=== PATIENT | male | born 1995 | race Caucasian/White ===

== ENCOUNTER 2017-12-23 12:56 | Emergency (ER) | payer OTHER, MEDICAID, SELFPAY ==
[2017-12-23 13:12] VITALS: BP 135/69; PULSE 70; RESP 20; TEMP 36.7; O2SAT 99; BMI 23.7
--- NOTE | 2017-12-23 13:20 | ED.EAR ---
HPI - Ear Problem General Chief complaint: Ear Stated complaint: loss of hearing in left ear Time Seen by Provider: 12/23/17 13:04 Source: patient Mode of arrival: ambulatory Limitations: no limitations History of Present Illness HPI Narrative: this is a 22-year-old male who comes in with left ear pain. Patient states he noticed yesterday after shower. He tried to massage the area and also use hydrogen peroxide drops to the left ear without any improvement. He did try to sleep in the left ear last night hoping that it would drain. He states it feels full. It was little bit more irritated and painful yesterday and is less so today. He feels like his hearing is a little bit decreased on that side. He denies any fevers. Denies any other symptoms. No other facial swelling or pain. MD Complaint: ear pain and decreased hearing Location: left ear Duration: constant Severity: moderate Relieving factors: nothing Discharge from ear: no Related Data Previous Rx's Medication Instructions Recorded ciprofloxacin-dexamethasone 4 drop EAR-LEFT QID 5 Days #7.5 ml 12/23/17 NS Allergies Allergy/AdvReac Type Severity Reaction Status Date / Time acetaminophen [From Vicodin] Allergy Verified 12/23/17 13:52 hydrocodone [From Vicodin] Allergy Verified 12/23/17 13:52 Review of Systems Review of Systems All systems reviewed & are unremarkable except as noted in HPI and below Constitutional Denies body ache(s) and Denies fever(s) ENT Ears, Nose, Mouth, and Throat: Reports as per HPI, Reports abnormal hearing ( on left side), Denies change in voice, Denies ear discharge, Reports otalgia, Denies facial pain, Reports hearing loss, Denies nasal congestion, Denies neck pain and Denies sore throat Musculoskeletal Denies neck pain Neurologic Reports abnormal hearing ( on left side) [facility] Surgical History History of surgical removal of meniscus of knee (Acute) Social History Smoking Status: Current every day smoker Exam Initial Vital Signs Initial Vital Signs: Vital Signs Temperature 98.0 F 12/23/17 13:12 Pulse Rate 70 12/23/17 13:12 Respiratory Rate 20 12/23/17 13:12 Blood Pressure 135/69 12/23/17 13:12 Pulse Oximetry 99 12/23/17 13:12 HENDE Head: normal to inspection, normocephalic and atraumatic Ears: external ears normal, TM normal on the right and unable to visualize TM on the left ( the patient has cerumen that appears impacted. There is some slight erythema of the internal auditory canal adjacent to the cerumen.) Nose: external nose normal and No nasal discharge Face and sinus: sinuses nontender, face symmetric, no sinus tenderness and No dry mucous membranes Mouth: oral mucosae normal and moist mucous membranes Teeth and gingiva: dentition normal Throat: tonsils normal and uvula midline Eyes General: appearance normal, both eyes and all related structures Skin General: no rashes or lesions noted Lesions: no lesions Rashes: no rashes Trauma: no lacerations or abrasions Neuro General: alert, oriented x3, gait normal, no focal motor deficits and CN's II-XI intact bilaterally Speech: speech normal Course Orders Ordered: Discontinued Medications Carbamide Peroxide (Debrox) 4 drops EAR-LEFT BID ONE Stop: 12/23/17 13:20 Last Admin: 12/23/17 13:53 Dose: 4 drops Vital Signs - 8 hr 12/23/17 13:12 Temperature 98.0 F Pulse Rate 70 Respiratory Rate 20 Blood Pressure 135/69 Pulse Oximetry 99 Medical Decision Making MDM Narrative Medical decision making narrative: Recheck after irrigation of the left ear. Discharge Plan Departure Patient Disposition: Home Clinical Impression: Impacted cerumen of left ear Instructions: DI for Cerumen Impaction Activity Restrictions/Additional Instructions: Use antibiotic ear drops 4 times daily x5 days. Allow the DeBrox drops to sit for 10 min twice daily. Afterwards flush with warm water with bulb suction syringe. to not use Q-tips or other foreign objects in the ear. Return to the emergency department if any worsening symptoms. Prescriptions: New ciprofloxacin-dexamethasone 0.3-0.1 % drops,suspension 4 drop EAR-LEFT QID 5 Days Qty: 7.5 RF: 0
--- NOTE | 2017-12-23 13:27 | ED_ITS ---
HPI - Ear Problem General Chief complaint: Ear Stated complaint: loss of hearing in left ear Time Seen by Provider: 12/23/17 13:04 Source: patient Mode of arrival: ambulatory Limitations: no limitations History of Present Illness HPI Narrative: this is a 22-year-old male who comes in with left ear pain. Patient states he noticed yesterday after shower. He tried to massage the area and also use hydrogen peroxide drops to the left ear without any improvement. He did try to sleep in the left ear last night hoping that it would drain. He states it feels full. It was little bit more irritated and painful yesterday and is less so today. He feels like his hearing is a little bit decreased on that side. He denies any fevers. Denies any other symptoms. No other facial swelling or pain. MD Complaint: ear pain and decreased hearing Location: left ear Duration: constant Severity: moderate Relieving factors: nothing Discharge from ear: no Related Data Previous Rx's Medication Instructions Recorded ciprofloxacin-dexamethasone 4 drop EAR-LEFT QID 5 Days #7.5 ml 12/23/17 NS Allergies Allergy/AdvReac Type Severity Reaction Status Date / Time acetaminophen [From Vicodin] Allergy Verified 12/23/17 13:52 hydrocodone [From Vicodin] Allergy Verified 12/23/17 13:52 Review of Systems Review of Systems All systems reviewed & are unremarkable except as noted in HPI and below Constitutional Denies body ache(s) and Denies fever(s) ENT Ears, Nose, Mouth, and Throat: Reports as per HPI, Reports abnormal hearing ( on left side), Denies change in voice, Denies ear discharge, Reports otalgia, Denies facial pain, Reports hearing loss, Denies nasal congestion, Denies neck pain and Denies sore throat Musculoskeletal Denies neck pain Neurologic Reports abnormal hearing ( on left side) [facility] Surgical History History of surgical removal of meniscus of knee (Acute) Social History Smoking Status: Current every day smoker Exam Initial Vital Signs Initial Vital Signs: Vital Signs Temperature 98.0 F 12/23/17 13:12 Pulse Rate 70 12/23/17 13:12 Respiratory Rate 20 12/23/17 13:12 Blood Pressure 135/69 12/23/17 13:12 Pulse Oximetry 99 12/23/17 13:12 HENVT Head: normal to inspection, normocephalic and atraumatic Ears: external ears normal, TM normal on the right and unable to visualize TM on the left ( the patient has cerumen that appears impacted. There is some slight erythema of the internal auditory canal adjacent to the cerumen.) Nose: external nose normal and No nasal discharge Face and sinus: sinuses nontender, face symmetric, no sinus tenderness and No dry mucous membranes Mouth: oral mucosae normal and moist mucous membranes Teeth and gingiva: dentition normal Throat: tonsils normal and uvula midline Eyes General: appearance normal, both eyes and all related structures Skin General: no rashes or lesions noted Lesions: no lesions Rashes: no rashes Trauma: no lacerations or abrasions Neuro General: alert, oriented x3, gait normal, no focal motor deficits and CN's II- XI intact bilaterally Speech: speech normal Course Orders Ordered: Discontinued Medications Carbamide Peroxide (Debrox) 4 drops EAR-LEFT BID ONE Stop: 12/23/17 13:20 Last Admin: 12/23/17 13:53 Dose: 4 drops Vital Signs - 8 hr 12/23/17 13:12 Temperature 98.0 F Pulse Rate 70 Respiratory Rate 20 Blood Pressure 135/69 Pulse Oximetry 99 Medical Decision Making MDM Narrative Medical decision making narrative: Recheck after irrigation of the left ear. Discharge Plan Departure Patient Disposition: Home Clinical Impression: Impacted cerumen of left ear Instructions: DI for Cerumen Impaction Activity Restrictions/Additional Instructions: Use antibiotic ear drops 4 times daily x5 days. Allow the DeBrox drops to sit for 10 min twice daily. Afterwards flush with warm water with bulb suction syringe. to not use Q-tips or other foreign objects in the ear. Return to the emergency department if any worsening symptoms. Prescriptions: New ciprofloxacin-dexamethasone 0.3-0.1 % drops,suspension 4 drop EAR-LEFT QID 5 Days Qty: 7.5 RF: 0
[2017-12-23] MEDS: CARBAMIDE PEROXIDE OTIC 15 ML 4 DROPS EAR-LEFT (13:53)
[2017-12-23 14:45] VITALS: BP 123/78; PULSE 69; RESP 15; O2SAT 100
== END 2017-12-23 14:45 | disposition home or self-care (01) ==
PROVIDERS: Emergency Provider Emergency Medicine
DX: H61.22 Impacted cerumen, left ear (principal)
CPT/HCPCS: 69209; 99283

== ENCOUNTER 2018-03-28 19:52 | Emergency (ER) | payer OTHER, MEDICAID, SELFPAY ==
[2018-03-28 19:55] VITALS: BP 129/64; PULSE 82; RESP 18; TEMP 36.4; O2SAT 97; BMI 25.0
--- NOTE | 2018-03-28 20:10 | ED_ITS ---
HPI - Skin/Abscess/Foreign Bdy General Chief complaint: Skin/Abscess/Foreign Body Stated complaint: ITCHY RASH Time Seen by Provider: 03/28/18 20:09 Source: patient Mode of arrival: ambulatory Limitations: no limitations History of Present Illness HPI narrative: 22-year-old male here for evaluation of a rash on his bilateral wrists. No new exposures. States that he did use some antifungal cream on it the past couple days but this has not improved. He does state that it itches. No new soaps lotions. Does not wear watch. No fevers. Related Data Previous Rx's Medication Instructions Recorded hydrocortisone 1 applictn TOP BID-QID PRN #20 gram 03/28/18 Allergies Allergy/AdvReac Type Severity Reaction Status Date / Time acetaminophen [From Vicodin] Allergy Verified 12/23/17 13:52 hydrocodone [From Vicodin] Allergy Verified 12/23/17 13:52 Review of Systems Constitutional Denies headache(s) ENT Ears, Nose, Mouth, and Throat: Denies headache(s), Denies lip swelling, Denies throat swelling and Denies tongue swelling Cardiovascular Denies chest pain and Denies dyspnea Respiratory Denies dyspnea Gastrointestinal Gastrointestinal: Denies abdominal pain Musculoskeletal Denies arthralgias Integumentary/Breasts Comments: Rash on bilateral wrists Neurologic Denies headache(s) Allergic/Immunologic Denies lip swelling, Denies seasonal rhinorrhea, Denies throat swelling and Denies tongue swelling [facility] Medical History Healthy adult (Acute) Surgical History History of surgical removal of meniscus of knee (Acute) Social History Smoking Status: Current every day smoker Exam Initial Vital Signs Initial Vital Signs: Vital Signs Temperature 97.6 F 03/28/18 19:55 Pulse Rate 82 03/28/18 19:55 Respiratory Rate 18 03/28/18 19:55 Blood Pressure 129/64 03/28/18 19:55 Pulse Oximetry 97 03/28/18 19:55 Const General: cooperative, healthy appearing, comfortable, well developed and well groomed Orientation: alert, awake and oriented x3 HENMT Head: normal to inspection and normocephalic Resp Effort & Inspection: normal respiratory effort Cardio Rate: regular rate Skin Other: patient with rash on bilateral wrist. Dorsum aspect radial aspect. No vesicles. No blisters. No pustules. Is blanching. Well circumscribed. Neuro General: alert, awake and oriented x3 Sensory Exam: no sensory deficits noted Extrem General: normal to inspection Psych Appearance: grossly normal and well kempt Course Vital Signs - 8 hr 03/28/18 19:55 Temperature 97.6 F Pulse Rate 82 Respiratory Rate 18 Blood Pressure 129/64 Pulse Oximetry 97 MDM - Skin/Abscess/Foreign Bdy MDM Narrative Medical decision making narrative: Exact etiology unknown. There is no new exposures. Does not appear to be infectious. Did not improve with over-the- counter antifungal creams. Will send home with a prescription for steroid cream. He was given return precautions. He expressed understanding and agreement with plan. Discharge Plan Departure Patient Disposition: Home Clinical Impression: Rash Discharge Date/Time: 03/28/18 20:31 Interventions: ED Discharge Assessment Last Done: 03/28/18 20:28 Instructions: DI for Rash Activity Restrictions/Additional Instructions: Recommend that you buy an [id number] hydrocortisone cream and use it like we discussed. If your symptoms do not improve then fill the prescription for the steroid cream year given this evening. I do recommend that you avoid any other new medications or lotions or soaps. If the rash worsens or he develops other symptoms such as fever return to the emergency department for further evaluation. Prescriptions: New hydrocortisone 2.5 % cream 1 applictn TOP BID-QID PRN (Reason: rash) Qty: 20 RF: 0
== END 2018-03-28 20:31 | disposition home or self-care (01) ==
PROVIDERS: Emergency Provider Emergency Medicine
DX: R21 Rash and other nonspecific skin eruption (principal)
CPT/HCPCS: 99282

== ENCOUNTER 2018-12-10 19:49 | Emergency (ER) | payer OTHER, MEDICAID, SELFPAY ==
[2018-12-10 19:59] VITALS: BP 137/84; PULSE 109; RESP 20; TEMP 36.9; O2SAT 100
--- NOTE | 2018-12-10 20:02 | DI.RAD.S_ITS ---
PROCEDURE: XR HAND RT MIN 3V INDICATIONS: hand through MIRROR possible glass fb TECHNIQUE: 3 views of the hand(s) acquired. COMPARISON: None. FINDINGS: Bones: No fractures or dislocations. Carpal bones are normally aligned. No suspicious bony lesions. Soft tissues: Radiopaque foreign bodies are present within the soft tissues between the base of the second and third proximal phalanges. A subtle radiopaque foreign body is also present within the dorsal soft tissues overlying the distal aspect of the proximal phalanx of the right fourth digit. IMPRESSION: Radiopaque foreign bodies as above. No acute fracture or dislocation. Dictated by: Ale Aviles M.D. on 12/10/2018 at 20:20 Approved by: Ale Aviles M.D. on 12/10/2018 at 20:21
--- NOTE | 2018-12-10 20:27 | ED.WOUNDLAC ---
HPI - Wound/Laceration General Chief Complaint: Wound/Laceration Stated Complaint: RT HAND INJURY Time Seen by Provider: 12/10/18 20:09 Source: patient Mode of arrival: ambulatory Limitations: no limitations History of Present Illness HPI narrative: 22-year-old denow-sm[employer]-jpedeiox male here for evaluation of cut sustained to his right hand when he punched a window. This did occur just prior to arrival here in the emergency department. Has cuts to his right hand. Has not done anything for the cuts prior to arrival. Related Data Previous Rx's Medication Instructions Recorded hydrocortisone 1 applictn TOP BID-QID PRN #20 gram 03/28/18 Allergies Allergy/AdvReac Type Severity Reaction Status Date / Time acetaminophen [From Vicodin] Allergy Verified 12/23/17 13:52 hydrocodone [From Vicodin] Allergy Verified 12/23/17 13:52 Review of Systems Constitutional Denies headache(s) and Denies weakness ENT Ears, Nose, Mouth, and Throat: Denies headache(s) and Denies disequilibrium Musculoskeletal Denies myalgias, Denies arthralgias and Denies tingling Integumentary/Breasts Comments: Cut to his right hand Neurologic Denies headache(s), Denies tingling, Denies paresthesias, Denies tremor(s), Denies disequilibrium and Denies weakness Hematologic/Lymphatic Denies easy bleeding and Denies easy bruising [facility] Medical History Healthy adult (Acute) Surgical History History of surgical removal of meniscus of knee (Acute) Social History Smoking Status: Current every day smoker Social History Smoking Status: Current every day smoker Exam Initial Vital Signs Initial Vital Signs: Vital Signs Temperature 98.4 F 12/10/18 19:59 Pulse Rate 109 H 12/10/18 19:59 Respiratory Rate 20 12/10/18 19:59 Blood Pressure 137/84 12/10/18 19:59 Pulse Oximetry 100 12/10/18 19:59 Const General: cooperative, comfortable, well developed and well groomed Orientation: alert and awake Resp Effort & Inspection: normal respiratory effort Cardio Pulses: radial pulses present on the right Skin Other: Patient with multiple cuts to his right hand. He has a avulsion of the skin over the MCP in between his ring and little finger over the MCP joints. Patient has a laceration over the PIP joint of the right ring finger. Has 3 lacerations on his ring finger of the right hand. Patient laceration over the PIP joint of the right index finger. Extrem Other: Right elbow right forearm right wrist unremarkable. Patient does have cuts to his right hand but full range of motion of all joints of his right hand Psych Appearance: grossly normal and well kempt Procedures Laceration Repair Laceration 1: Site: hand Side (If applicable): right Size (cm): 2 Description: linear Depth: simple, single layer Local Anesthetic: lidocaine 1% Amount of anesthesia used (mL): 1 Pre-repair: wound explored, irrigated extensively and deep structures intact Skin layer closed with: nylon Size (cm): 4-0 Number of sutures: 1 Technique: simple, interrupted Laceration 2: Site: hand Side (If applicable): right Size (cm): 3 Description: linear Depth: simple, single layer Local Anesthetic: lidocaine 1% Amount of anesthesia used (mL): 2 Pre-repair: wound explored, irrigated extensively and deep structures intact Skin layer closed with: nylon Size (cm): 4-0 Number of sutures: 2 Technique: simple, interrupted Laceration 3: Site: hand Side (If applicable): right Size (cm): 2 Description: flap Depth: simple, single layer Local Anesthetic: lidocaine 1% Amount of anesthesia used (mL): 1 Pre-repair: wound explored, irrigated extensively and deep structures intact Skin layer closed with: nylon Size (cm): 3-0 Number of sutures: 1 Laceration 4: Site: hand Side (If applicable): right Size (cm): 1 Description: flap Depth: simple, single layer Local Anesthetic: lidocaine 1% Amount of anesthesia used (mL): 1 Pre-repair: wound explored, irrigated extensively and deep structures intact Skin layer closed with: nylon Size (cm): 3-0 Number of sutures: 2 Technique: simple, interrupted Laceration 5: Site: hand Side (If applicable): right Size (cm): 3 Description: linear Depth: simple, single layer Local Anesthetic: lidocaine 1% Amount of anesthesia used (mL): 3 Pre-repair: wound explored, irrigated extensively and deep structures intact Skin layer closed with: nylon Size (cm): 3-0 Number of sutures: 3 Technique: simple, interrupted Course Orders Ordered: ED Orders 12/10/18 20:02 XR hand RT min 3V Stat Discontinued Medications Amoxicillin/Clavulanate Potassium (Augmentin 875-125 Mg) 1 tab PO NOW ONE Stop: 12/10/18 22:03 Bacitracin (Bacitracin) 1 applic TOP NOW ONE Stop: 12/10/18 21:59 Bacitracin (Bacitracin) 1 applic TOP NOW ONE Stop: 12/10/18 22:03 Diphtheria/Tetanus/Acell Pertussis (Adacel) 0.5 ml IM .ONCE ONE Stop: 12/10/18 20:28 Last Admin: 12/10/18 20:42 Dose: 0.5 ml Lidocaine HCl (Xylocaine 1% (Pf)) 8 ml INJ NOW ONE Stop: 12/10/18 20:55 Vital Signs - 8 hr 12/10/18 19:59 12/10/18 22:31 Temperature 98.4 F Pulse Rate 109 H 98 H Respiratory Rate 20 18 Blood Pressure 137/84 127/86 Pulse Oximetry 100 99 MDM - Wound/Laceration Imaging Data X-ray hand: Radiologist's impression: [place] [address] XRay Report Signed Patient: Spike Feng JMR#: [id number] : 1995Acct:[id number] Age/Sex: 22 / MDate of Service: 12/10/18 Loc: ED Accession Number: [id number] Procedure: XR hand RT min 3V Ordering Provider: Marcus Ruiz D.O. PROCEDURE: XR HAND RT MIN 3V INDICATIONS: hand through MIRROR possible glass fb TECHNIQUE: 3 views of the hand(s) acquired. COMPARISON: None. FINDINGS: Bones: No fractures or dislocations. Carpal bones are normally aligned. No suspicious bony lesions. Soft tissues: Radiopaque foreign bodies are present within the soft tissues between the base of the second and third proximal phalanges. A subtle radiopaque foreign body is also present within the dorsal soft tissues overlying the distal aspect of the proximal phalanx of the right fourth digit. IMPRESSION: Radiopaque foreign bodies as above. No acute fracture or dislocation. Dictated by: Ale Aviles M.D. on 12/10/2018 at 20:20 Approved by: Ale Aviles M.D. on 12/10/2018 at 20:21 [facility] Narrative Medical decision making narrative: Patient with what appears to be small foreign bodies in the right hand most likely glass. He was irrigated extensively and with some exploration or unable to find any pieces. Multiple cuts on his hand were closed as described above. His tetanus was updated. He was given care instructions return precautions. He expressed understanding and agreement with plan. Will hold on any antibiotics for now. Discharge Plan Departure Patient Disposition: Home Clinical Impression: Laceration Discharge Date/Time: 12/10/18 22:32 Interventions: ED Discharge Assessment Last Done: 12/10/18 22:31 Instructions: DI for Laceration Repair Activity Restrictions/Additional Instructions: You can wash her hand like normal. Do not soak your hand anything. The stitches do need to be removed in 7-10 days. Return to the emergency department for any new or worsening symptoms Prescriptions: No Action hydrocortisone 2.5 % cream 1 applictn TOP BID-QID PRN (Reason: rash) Qty: 20 RF: 0
[2018-12-10] MEDS: TET,DIPH,PERTUSS(ACELL),VAC/PF 0.5 ML SYRINGE IM (20:42)
--- NOTE | 2018-12-10 22:29 | PC.NURSE ---
after sutures applied by DR Ruiz,bacitracin telfa kerlix and coban applied.He was smiling and joking with staff.
[2018-12-10 22:31] VITALS: BP 127/86; PULSE 98; RESP 18; O2SAT 99
== END 2018-12-10 22:32 | disposition home or self-care (01) ==
PROVIDERS: Emergency Provider Emergency Medicine
DX: S61.421A Laceration with foreign body of right hand, initial encounter (principal); Z23 Encounter for immunization
CPT/HCPCS: 12004; 73130; 90471; 99283; 90715

== ENCOUNTER 2018-12-22 14:17 | Emergency (ER) | payer OTHER, MEDICAID, SELFPAY ==
[2018-12-22 14:34] VITALS: BMI 23.7
--- NOTE | 2018-12-22 15:54 | ED.RECABL ---
HPI - Recheck/Abnormal Lab/Rx <MARK Butcher - Last Filed: 12/22/18 21:49> General Chief Complaint: Recheck/Abnormal Lab/Rx Stated Complaint: remove right hand stitches Time Seen by Provider: 12/22/18 14:53 Source: patient Mode of arrival: ambulatory Limitations: no limitations History of Present Illness HPI narrative: 23-year-old healthy male presents emergency department today for removal of sutures in his right hand that replace in the emergency department on 12/10/2018 after he punched a window. He states he was instructed to remove them earlier but had not had a chance to come to the emergency department. The patient reports he removed 1 suture at home. He denies any pain, but see discharge, fevers, chills, numbness, tingling, or limited range of motion. Related Data Previous Rx's Medication Instructions Recorded hydrocortisone 1 applictn TOP BID-QID PRN #20 gram 03/28/18 Allergies Allergy/AdvReac Type Severity Reaction Status Date / Time acetaminophen [From Vicodin] Allergy Verified 12/23/17 13:52 hydrocodone [From Vicodin] Allergy Verified 12/23/17 13:52 Review of Systems <MARK Butcher - Last Filed: 12/22/18 21:49> Review of Systems Narrative: REVIEW OF SYSTEMS: GENERAL: Denies fever or chills. HENT: Denies head trauma. EYE: Denies double vision or vision loss. CARDIOVASCULAR: Denies syncope. MUSCULOSKELETAL: Denies weakness, or deformities. INTEGUMENTARY: Complains of wound on right knuckles-requesting removal of sutures, see HPI. NEURO: Denies numbness or tingling. PFSH <MARK Butcher - Last Filed: 12/22/18 21:49> Medical History Healthy adult (Acute) Surgical History History of surgical removal of meniscus of knee (Acute) Social History Smoking Status: Current every day smoker Social History Smoking Status: Current every day smoker Exam <Joyce Castro MARK - Last Filed: 12/22/18 21:49> Initial Vital Signs Initial Vital Signs: PHYSICAL EXAMINATION: GENERAL: Well groomed, alert, and cooperative. Answers questions promptly and appropriately. Vital signs noted. HENT: Normocephalic, atraumatic. RESPIRATORY: Normal respiratory rate, trachea midline, airway patent. No stridor, nasal flaring or accessory muscle use. MUSCULOSKELETAL: Normal gait and coordination. Equal tone and mass bilaterally. Full range of motion of hand and fingers. EXTREMITIES: CMS intact. Moves all extremities. SKIN: Warm, dry, soft, appropriate color for ethnicity. Five wounds to right knuckle that appeared to be healing well, pink wound bed without erythema or exudate. Sutures were removed by RN who reports she removed 11 sutures, patient also reports he removed 1 for total of 12. NEURO: Alert and Oriented X 3. Good coordination. PSYCH: Appropriate affect and mood. MDM - Recheck/Abnormal Lab/Rx <Joyce CastroMARK - Last Filed: 12/22/18 21:49> Medical Records Attestation: I reviewed the patient's medical records. Lab Data Attestation: I reviewed the patient's lab results. MDM Narrative Medical decision making narrative: Simple suture move her by RN. No signs of infection due to the Discharge Plan Departure Patient Disposition: Home Clinical Impression: Encounter for removal of sutures Discharge Date/Time: 12/22/18 14:57 Instructions: DI for Suture Removal Activity Restrictions/Additional Instructions: Thank you for entrusting me with your care today. As discussed, we have removed your sutures today. Please continue monitor for signs of infection such as increased redness, fevers, chills, pussy drainage, or other concerning symptoms. Return to the emergency department if he develops chest pain, shortness of breath, syncope. Prescriptions: No Action hydrocortisone 2.5 % cream 1 applictn TOP BID-QID PRN (Reason: rash) Qty: 20 RF: 0 <Marcus Ruiz DO - Last Filed: 12/23/18 07:21> Sign Out Provider Sign Out Attestation: I was available for consultation during this patient's emergency department encounter
== END 2018-12-22 14:57 | disposition home or self-care (01) ==
PROVIDERS: Emergency Provider Nurse Practitioner
DX: Z48.02 Encounter for removal of sutures (principal)
CPT/HCPCS: 99281; 99282

== ENCOUNTER 2021-09-05 10:14 | Emergency (ER) | payer SELFPAY ==
[2021-09-05 10:20] VITALS: BP 127/74; PULSE 83; RESP 16; TEMP 36.6; O2SAT 97; BMI 24.4
--- NOTE | 2021-09-05 10:26 | DI.RAD.S_ITS ---
PROCEDURE: XR KNEE LT 3V INDICATIONS: knee pain TECHNIQUE: 3 views of the knee were acquired. COMPARISON: None. FINDINGS: Bones: No fractures or dislocations. No suspicious bony lesions. Soft tissues: Very small joint effusion. No suspicious soft tissue calcifications. IMPRESSION: Left knee without acute fracture or dislocation. Very small left knee joint effusion. If there are persistent symptoms or clinical suspicion for pathology, then repeat radiographs or advanced imaging (CT or MRI) may be considered for further evaluation. Dictated by: Andrew Shah M.D. on 09/05/2021 at 10:41 Approved by: Andrew Shah M.D. on 09/05/2021 at 10:42
[2021-09-05] MEDS: IBUPROFEN 400 MG TABLET 800 MG PO (11:32)
--- NOTE | 2021-09-05 12:15 | ED.LOWEXIN ---
HPI - Extremity Injury (Lower) <MARK Miller - Last Filed: 09/05/21 13:38> General Chief Complaint: Extremity Injury, Lower Stated Complaint: knee pain left side stiff wouldnt straighten Time Seen by Provider: 09/05/21 12:04 History of Present Illness HPI Narrative: This is a 25-year-old male up today, knee locking, popping, and history of right knee meniscal injury, arthritis, and he works an active job. 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 Denies any fever, he denies any erythema, edema, or skin changes. Patient does not have a primary care provider at this time, states he does not have insurance to go to Orthopedics either. He has not had this evaluated yet. Related Data Previous Rx's Medication Instructions Recorded hydrocortisone 2.5 % topical cream 1 applictn TOP BID-QID PRN #20 gram 03/28/18 Allergies Allergy/AdvReac Type Severity Reaction Status Date / Time acetaminophen [From Vicodin] Allergy Verified 12/23/17 13:52 hydrocodone [From Vicodin] Allergy Verified 12/23/17 13:52 Review of Systems <MARK Miller - Last Filed: 09/05/21 13:38> Review of Systems Narrative: General: denies fever, chills, malaise, sweats, fatigue Head/Neck: denies headache, neck pain, dizziness Eyes: denies visual changes, eye pain Cardio: denies chest pain, palpitations, edema Respiratory: denies dyspnea, cough, orthopnea GI: denies abdominal pain, nausea, vomiting, or diarrhea MSK: Endorses left knee pain, denies other joint pain, denies any muscle weakness or sensation changes Skin: denies rash, itching, skin lesions or other Neuro: denies numbness, tingling Patient History <MARK Miller - Last Filed: 09/05/21 13:38> Medical History Healthy adult Surgical History History of surgical removal of meniscus of knee Social History Smoking Status: Current every day smoker Smoking Status: Current every day smoker tobacco type: cigarettes and cigars alcohol intake frequency: holidays/special occasions only Substance Use Type: marijuana Exam <MARK Miller - Last Filed: 09/05/21 13:38> Narrative Exam Narrative: Independently reviewed vitals signs and nursing notes. General: cooperative, comfortable, in no acute distress, well groomed Head: atraumatic, symmetrical facial expressions Neck: supple Eyes: equal round and reactive, EOMI, conjunctiva normal Nose: nares patent, no rhinorrhea Mouth/Throat: moist mucus membranes Cardiovascular: regular rate and rhythm, no peripheral edema, warm extremities Respiratory: normal effort, able to speak in complete sentences, no audible wheezing, stridor, or rales. No retractions or tachypnea. GI: abdomen soft, nontender to palpation, nondistended, no masses, no exquisite tenderness with exam, without guarding or rebound. MSK: moves all extremities, neurovascularly intact, no weakness, normal tone, no palpable effusion, no discoloration, no tenderness over LCL or MCL, prominent tension of ITP band, no tenderness over patellar tendon, Frances test negative, full range of motion without limitation. Patient states that his range of motion improved after he took ibuprofen Skin: brisk capillary refill, no rash, no erythema Neuro: normal speech and cognition, A&O x3 Psych: mental status is grossly normal, congruent mood, normal affect, pleasant and cooperative Initial Vital Signs Initial Vital Signs: Vital Signs Temperature 97.8 F 09/05/21 10:20 Pulse Rate 83 09/05/21 10:20 Respiratory Rate 16 09/05/21 10:20 Blood Pressure 127/74 09/05/21 10:20 Pulse Oximetry 97 09/05/21 10:20 <Concha Busby DO - Last Filed: 09/06/21 07:12> Initial Vital Signs Initial Vital Signs: Vital Signs Temperature 97.8 F 09/05/21 10:20 Pulse Rate 83 09/05/21 10:20 Respiratory Rate 16 09/05/21 10:20 Blood Pressure 127/74 09/05/21 10:20 Pulse Oximetry 97 09/05/21 10:20 Course <MARK Miller - Last Filed: 09/05/21 13:38> Orders Ordered: Discontinued Medications Ibuprofen (Ibuprofen 400 Mg Tablet) 800 mg PO NOW ONE Stop: 09/05/21 10:26 Last Admin: 09/05/21 11:32 Dose: 800 mg Documented by: MARIA ESTHER Vital Signs Vital signs: Vital Signs - 8 hr 09/05/21 10:20 Temperature 97.8 F Pulse Rate 83 Respiratory Rate 16 Blood Pressure 127/74 Pulse Oximetry 97 <Concha Busby DO - Last Filed: 09/06/21 07:12> Orders Ordered: Discontinued Medications Ibuprofen (Ibuprofen 400 Mg Tablet) 800 mg PO NOW ONE Stop: 09/05/21 10:26 Last Admin: 09/05/21 11:32 Dose: 800 mg Documented by: MARIA ESTHER Vital Signs Vital signs: Vital Signs - 8 hr 09/05/21 10:20 Temperature 97.8 F Pulse Rate 83 Respiratory Rate 16 Blood Pressure 127/74 Pulse Oximetry 97 MDM - Extremity Injury (Lower) <MARK Miller - Last Filed: 09/05/21 13:38> Imaging Data Extremity x-ray #1: Radiologist's Impression: PROCEDURE:? XR KNEE LT 3V ? INDICATIONS:? knee pain ? TECHNIQUE:? 3 views of the knee were acquired.? ? COMPARISON:? None. ? FINDINGS:? ? Bones:? No fractures or dislocations.? No suspicious bony lesions.? ? Soft tissues:? Very small joint effusion.? No suspicious soft tissue calcifications.? ? ? IMPRESSION:? Left knee without acute fracture or dislocation.? Very small left knee joint effusion. ? If there are persistent symptoms or clinical suspicion for pathology, then repeat radiographs or advanced imaging (CT or MRI) may be considered for further evaluation. ? ? Dictated by: Andrew Shah M.D. on 09/05/2021 at 10:41 ? ? Approved by: Andrew Shah M.D. on 09/05/2021 at 10:42 ? [facility] Narrative Medical decision making narrative: This is a 25-year-old male who presents to the emergency department with acute onset of left knee pain when he woke up this morning, any popping, and getting locked in extension. Patient has history of right knee arthritis, meniscal injury and required surgery. Patient's left knee x-ray shows no acute fracture or dislocation, very small joint effusion. Patient did not have any significant tenderness over ligaments or tendons, no palpable effusion, ecchymosis, or range of motion deficit. He was given 800 mg of ibuprofen in the emergency department, fitted in a knee immobilizer, encouraged to ice, limit use, and follow-up with orthopedics if it is persistent. Recommended diclofenac gel and Tylenol with ibuprofen for pain. Patient is appropriate and amenable to discharge home. Vital signs are stable on repeat examination is unremarkable. Patient has been informed of results. Patient has been given strict return to ER precautions for any new or worsening symptoms. Patient understands to follow up closely with outpatient providers as instructed. Patient understands plan and agrees to discharge home. All questions and concerns answered at this time. Discharge Plan Departure Patient Disposition: Home Clinical Impression: Effusion of knee joint, left Instructions: DI for Knee Effusion Activity Restrictions/Additional Instructions: *You have been diagnosed with you have a small left knee effusion. This can be due to ligamental injury, inflammation, arthritis, meniscal injury, or other trauma. Please rest, ice, keep it elevated, avoid straining. Please call [facility] for follow-up if you need one. If you have increasing instability, weakness, sensation changes, or pain beyond control with Tylenol and ibuprofen, diclofenac gel, please return to the emergency department. Hope you feel better soon. *What to do: *Please continue to take your regular medications as directed. [ ] New medication prescriptions sent to your pharmacy: [ ] [ ] New medication written as a paper prescription [x ] No new medications given *Please follow up with your primary care provider in 2-3 days, call for an appointment. Let them know you were seen in the Emergency Department and that we asked that you be seen for follow-up. We will electronically transmit a record of today's note if your PCP is in our system *If you do not have a primary care provider please contact [phone] to establish care with one of [facility] primary care providers. *Return to Emergency Department if you should have any new, worsening or concerning symptoms, such as [fever greater than 101F, chills, worsening pain, persistent vomiting or other bothersome symptoms] Prescriptions: No Action hydrocortisone 2.5 % cream 1 applictn TOP BID-QID PRN (Reason: rash) Qty: 20 0RF Referrals: [facility] [Provider Group] <Concha Busby, DO - Last Filed: 09/06/21 07:12> Cosign ED Attending Cosharrisature Attestation: I was immediately available in the department for consultation. Documentation has been reviewed. I agree with assessment and plan.
== END 2021-09-05 12:35 | disposition home or self-care (01) ==
PROVIDERS: Emergency Provider Nurse Practitioner Critical Care Medicine
DX: M25.462 Effusion, left knee (principal)
CPT/HCPCS: 73562; 99283